=== PATIENT | female | born 1940 | race Caucasian/White ===

== ENCOUNTER 2021-04-15 23:06 | Emergency (ER) | payer OTHER ==
[~2021-04-15] VITALS: Ht 147.3 cm; Wt 68.0 kg
[2021-04-16] MEDS ORDERED: ASPirin 81 mg TAB PO ONE (00:30)
[2021-04-16 01:14] LABS: Basophils # (auto) 0.1 10 ^3/uL (0-0.2); Basophils % (auto) 1.8 % (0.0-2.0); Eosinophils # (auto) 0.1 10 ^3/uL (0-0.8); Eosinophils % (auto) 0.8 % (0.0-7.0); Hematocrit 40.4 % (36.0-46.0); Hemoglobin 13.7 g/dL (12.2-16.2); Lymphocytes # (auto) 1.4 10 ^3/uL (0.4-5.4); Lymphocytes % (auto) 17.7 % (10.0-50.0); Mean Corpuscular Hemoglobin 29.8 pg (28.0-32.0); Mean Corpuscular Volume 87.7 fL (80.0-100.0); Monocytes # (auto) 0.6 10 ^3/uL (0-1.3); Neutrophils # (auto) 5.8 10 ^3/uL (1.6-8.6); Neutrophils % (auto) 72.7 % (37.0-80.0); Red Blood Cells 4.61 10^6/uL (4.0-5.20); Red Cell Distribution Width 13.7 % (11.8-14.3)
[2021-04-16] MEDS ORDERED: ALUM & MAG HYDROX-SIMETH LIQ(MAALOX) 30 ML PO ONE (01:15)
[2021-04-16] MEDS ORDERED: LIDOCAINE VISCOUS 2% 15ML UD PO ONE (01:15)
[2021-04-16 01:27] LABS: Albumin 3.4 g/dL (3.4-5.0); Anion Gap 5 (5-15); Blood Urea Nitrogen 25 mg/dL (7-18); Calcium 9.1 mg/dL (8.5-10.1); Carbon Dioxide 28 mmol/L (21-32); Chloride 105 mmol/L (98-107); Glucose 86 mg/dL (74-106); Magnesium 2.1 mg/dL (1.6-2.6); Potassium 3.6 mmol/L (3.5-5.1); Sodium 138 mmol/L (136-145)
[2021-04-16 01:29] LABS: Alanine Aminotransferase 20 U/L (13-56); Aspartate Aminotransferase 14 U/L (15-37); BUN/Creatinine Ratio 22.3; GFR African American 61 mL/min; GFR Non-African American 50 mL/min
[2021-04-16 01:30] LABS: INR 1.02 (0.9-1.15); Partial Thromboplastin Time 24.8 sec (23.6-33.0)
[2021-04-16 01:34] LABS: Alkaline Phosphatase 49 U/L (45-117); Bilirubin, Total 0.4 mg/dL (0.2-1.0); Total Protein 7.7 g/dL (6.4-8.2)
[2021-04-16 03:00] VITALS: BP 148/71
== END 2021-04-16 03:19 | disposition home or self-care (01) ==
LOC: ER 23:06
DX: K44.9 Diaphragmatic hernia without obstruction or gangrene (principal); R07.89 Other chest pain; I10 Essential (primary) hypertension
CPT/HCPCS: 36415; 71045; 80053; 83735; 83880; 84484; 85025; 85610; 85730; 93005